=== PATIENT | male | born 1995 | race Caucasian/White ===

== ENCOUNTER 2022-07-26 13:58 | Outpatient (CLI) | payer BC, MEDICAID, SELFPAY | END 2022-07-26 13:59 | disposition home or self-care (01) | LOC: FBOREF 07-29 13:13 | PROVIDERS: PCP Family Medicine; Visit Provider Family Medicine | DX: E10.9 Type 1 diabetes mellitus without complications (principal) | CPT/HCPCS: 84681 ==

== ENCOUNTER 2024-12-20 09:54 | Outpatient (CLI) | payer MEDICAID, SELFPAY ==
[2024-12-20 14:11] LABS: Creatinine Urine 183.9 mg/dL
[2024-12-20 14:16] LABS: Microalbumin Creatinine Ratio 0 mg/g (0-30); Microalbumin Urine 1 mg/dL
== END 2024-12-20 09:55 | disposition home or self-care (01) ==
PROVIDERS: PCP Family Medicine; Visit Provider Family Medicine
DX: E10.9 Type 1 diabetes mellitus without complications (principal); I10 Essential (primary) hypertension; Z13.6 Encounter for screening for cardiovascular disorders
CPT/HCPCS: 80048; 80061; 82043; 82570